=== PATIENT | female | born 1975 | race Two or more races ===

== ENCOUNTER 2020-01-13 19:44 | Emergency (ER) | payer SELFPAY ==
[~2020-01-13] VITALS: Ht 165.1 cm; Wt 68.0 kg
--- NOTE | 2020-01-13 19:45 | NUR ---
ED Nurse Note: Patient was brought in by JR [facility] [id number] [facility] c/o L toe and foot pain. Patient is screaming and crying, unable to answer many questions at this time.
--- NOTE | 2020-01-13 20:34 | Emergency Room Report ---
History of Present Illness General Chief Complaint: Lower Extremity Injury Source: Patient, EMS Present Illness HPI Disclaimer: Please note that this report is being documented using DRAGON technology. This can lead to erroneous entry secondary to incorrect interpretation by the dictating instrument. HPI: 44-year-old female run for foot pain. Patient cannot provide any history though came in screaming complaining of uncontrollable pain in the feet. She is not providing any information at this time. She is not saying whether there is an injury, new swelling, skin breakdown. She appears somewhat sedated. I suspect intoxication. She is not answering my questions but she was ambulatory throughout the department asking for food and blankets. She is now sleeping comfortably and awakens to voice. She does not want to answer any questions at this time. She is moving all her extremities. She is laughing to herself sometimes PMH: Patient refuses to answer PSH: Patient refuses to answer Allergies: Patient refuses to answer Social Hx: Patient refuses to answer Allergies: Coded Allergies: No Known Allergies (Unverified , 01/13/20) Patient History Last Menstrual Period: n/a Nursing Documentation-PMH Past Medical History: No Stated History Review of Systems All Other Systems: limited - Patient uncooperative Physical Exam Vital Signs Date Time Temp Pulse Resp B/P (MAP) Pulse Ox O2 Delivery O2 Flow Rate FiO2 01/13/20 19:40 98.4 80 18 127/80 (96) 99 Room Air General: Sleeping comfortably, awakens to voice, HEENT: NC/AT. EOMI. pupils are 4 mm and reactive. Cardiovascular: RRR. S1 and S2 normal. No murmur appreciated Resp: Normal work of breathing. No cough, wheezing or crackles appreciated Abdomen: Abdomen is soft, nondistended. Nontender Skin: Extensive skin picking over the extremities as well as eczematous lesions over the lower extremities no focal point tenderness or swelling. MSK: Normal tone and bulk. Moving all extremities. No obvious deformity. 3+ pitting edema bilaterally. No reproducible tenderness on my exam. Patient was ambulating with a steady gait. Neuro: Sleeping comfortably. Awakens easily to voice. GCS 13. Laughing to herself sometimes. Does not appear to be hallucinating. May be intoxicated. Medical Decision Making Diagnostic Impression: Primary Impression: Foot pain, bilateral ER Course 44-year-old homeless female presents for evaluation of bilateral leg pain. Now having no complaints and ambulating in the emergency department. Suspect secondary gain. She is requesting food and blankets. She is sleeping comfortably. Will allow to metabolize and reevaluate. Reevaluation Time: 22:36 Last Vital Signs Date Time Temp Pulse Resp B/P (MAP) Pulse Ox O2 Delivery O2 Flow Rate FiO2 01/13/20 19:40 98.4 80 18 127/80 (96) 99 Room Air Reevaluation Impression Patient has been watched in the emergency department proximately 2-1/2 hours. No further complaints of foot pain. She has been ambulatory, eating, drinking and requesting blankets. She goes right back to sleep after without complaints. She will be discharged to follow-up as needed and return with new or worsening symptoms. Do not believe she requires labs or imaging at this time. Disposition: HOME, SELF-CARE Condition: Stable Brooks Espinosa MD Jan 13, 2020 20:33
[2020-01-14 00:13] VITALS: BP 127/80
--- NOTE | 2020-01-14 00:13 | NUR ---
ED Nurse Note: Pt cleared by health care Provider for discharge. DC instructions/prescription was given and explained to pt and verbalized understanding of teachings. All medical deviecs such as ID band removed. Pt is AAO x4, ambulatory and left with all personal belongings.
== END 2020-01-14 00:13 | disposition home or self-care (01) ==
LOC: EDBD 19:44 → EMR 19:59
DX: M25.572 Pain in left ankle and joints of left foot (principal); M25.571 Pain in right ankle and joints of right foot
CPT/HCPCS: 99282